=== PATIENT | female | born 1970 | race Caucasian/White ===

== ENCOUNTER 2018-10-25 09:17 | Outpatient (CLI) | payer BC | END 2018-10-25 09:18 | disposition home or self-care (01) | LOC: DTY/OP 09:17 | PROVIDERS: ATTEND Surgery | DX: E66.01 Morbid (severe) obesity due to excess calories (principal) | CPT/HCPCS: 97802 ==

== ENCOUNTER 2018-11-28 01:31 | Outpatient (CLI) | payer BC ==
[2018-11-28 11:39] LABS: #Eosinphils 0.2 thou/uL (0.0-0.7); #Lymphocytes 2.6 thou/uL (1.20-3.40); #Monocytes 0.6 thou/uL (0.11-0.59); #Neutrophils 5.1 thou/uL (1.40-6.50); %Basophils 0.5 % (0.0-1.0); %Eosinophils 2.8 % (0.0-10.0); %Lymphocytes 30.1 % (21.0-51.0); %Monocytes 7.3 % (0.0-10.0); %Neutrophils 59.4 % (42.0-75.0); Hemoglobin 13.8 g/dL (12.0-16.0); Mean Corpuscular Hemoglobin 30.1 pg (27.0-31.0); Mean Corpuscular Volume 91.3 fL (78.0-98.0); Mean Platelet Volume 7.4 fL (7.4-10.4); Platelet Count 302 thou/uL (130-400); RBC Distribution Width 11.6 % (11.5-14.5); Red Blood Cell (RBC) Count 4.57 mill/uL (4.20-5.40); White Blood Cell (WBC) Count 8.6 thou/uL (4.8-10.8)
[2018-11-28 11:44] LABS: BHCG - Serum Negative (NEGATIVE); Pregs Control Background? CLEAR/WHITE (CLR/WHITE); Pregs Control Bar Appear? YES (CONTROL BAR)
[2018-11-28 12:00] LABS: ALT (SGPT) 23 U/L (8-55); AST (SGOT) 19 U/L (5-34); Albumin 4.4 g/dL (3.5-5.0); Alkaline Phosphatase 106 U/L (40-150); Anion Gap 12 mmol/L (10-20); BUN (Urea Nitrogen) 17 mg/dL (7.0-18.7); Bilirubin, Direct 0.2 mg/dL (0.1-0.3); Bilirubin, Total 0.6 mg/dL (0.2-1.2); Calc. Creatinine Clearance 0 mL/min (70-130); Calcium 9.6 mg/dL (7.8-10.44); Carbon Dioxide 26 mmol/L (22-29); Chloride 102 mmol/L (98-107); Estimated GFR-MDRD 73; Glucose 74 mg/dL (70-105); Protein, Total 7.4 g/dL (6.0-8.3); Sodium 136 mmol/L (136-145)
[2018-11-28 12:32] LABS: Hemoglobin A1c 5.5 % (4.0-6.0)
--- NOTE | 2018-11-28 13:11 | RAD ---
CHEST TWO VIEWS: HISTORY: Preoperative radiograph prior to surgery. COMPARISON: None. FINDINGS: Two views of the chest show normal sized cardiomediastinal silhouette. There is no evidence of consol idation, mass, or pleural effusion. The bones are unremarkable. IMPRESSION: No evidence of acute cardiopulmonary disease. POS: [facility]
== END 2018-11-28 01:32 | disposition home or self-care (01) ==
LOC: LABBT 01:31
PROVIDERS: ATTEND Surgery
DX: Z01.818 Encounter for other preprocedural examination (principal); E66.01 Morbid (severe) obesity due to excess calories
CPT/HCPCS: 71046; 80053; 80076; 83036; 84703; 85025; 93005; 93010

== ENCOUNTER 2018-11-28 09:30 | Inpatient (IN) | payer BC ==
[2018-11-28 10:19] VITALS: BMI 37.5
[2018-12-05] MEDS ORDERED: Heparin 5,000 UNITS/ML VIAL ONE (10:28)
[2018-12-05] MEDS ORDERED: Scopolamine 1.5 mg/72 hour Patch ONE (10:29)
[2018-12-05] MEDS ORDERED: Bupivacaine/Epinephrine 0.25% 30 ML VIAL ONE (10:59)
[2018-12-05] MEDS ORDERED: Midazolam HCl 2 mg/2 ml Vial ONE (11:27)
[2018-12-05] MEDS ORDERED: Fentanyl 100 MCG/2 ML VIAL ONE ×2 (11:57→13:44)
[2018-12-05] MEDS ORDERED: Ondansetron HCl/PF 4 MG/2 ML Vial IVP PRN (13:44)
[2018-12-05] MEDS ORDERED: Promethazine HCl 25 MG/ML VIAL SLOW IVP PRN (13:44)
[2018-12-05] MEDS ORDERED: Promethazine HCl 25 MG/ML VIAL IM PRN ×3 (13:44→15:23)
[2018-12-05] MEDS ORDERED: Ondansetron PF 4 MG/2 ML Vial IVP PRN ×2 (13:46→15:23)
[2018-12-05] MEDS ORDERED: Zolpidem Tartrate 5 MG TAB PO PRN (13:46)
[2018-12-05] MEDS ORDERED: Naloxone HCl 0.4 mg/ml Vial IV PRN (13:46)
[2018-12-05] MEDS ORDERED: diphenhydrAMINE 50 MG/ML VIAL IM/IV PRN (13:46)
[2018-12-05] MEDS ORDERED: fentaNYL Citrate/PF 2,000 MCG in Sodium Chloride 0.9% 60 ML IV PRN (13:46)
[2018-12-05] MEDS ORDERED: diphenhydrAMINE 25 MG CAP PO PRN (13:46)
--- NOTE | 2018-12-05 14:20 | OP ---
DATE OF PROCEDURE: 12/05/2018 PREOPERATIVE DIAGNOSES: 1. Morbid obesity with a body mass index of 38. 2. Dyslipidemia. POSTOPERATIVE DIAGNOSES: 1. Morbid obesity with a body mass index of 38. 2. Dyslipidemia. 3. Hiatal hernia. PROCEDURES PERFORMED: 1. Laparoscopic sleeve gastrectomy with [place] staple line reinforcements and 38-Romansh bougie. 2. Esophagogastroduodenoscopy. 3. Laparoscopic paraesophageal hiatal hernia repair without mesh or fundoplication. ANESTHESIA: General. ESTIMATED BLOOD LOSS: Minimal. COMPLICATIONS: None. SPECIMENS: Stomach. FINDINGS: Normal postoperative EGD. DESCRIPTION OF PROCEDURE: The patient was taken to the operating room and laid supine on the operating room table. After general anesthetic was obtained, the arms and legs were double strapped to bariatric table. OG tube was used to decompress the stomach. The abdomen was prepped and draped in a sterile fashion. A left subcostal 5-mm Optiview trocar was placed in usual fashion and high-flow pneumoperitoneum was obtained. Left and right abdominal 12-mm ports as well as a right subcostal 5-mm port were placed under direct visualization. Subcostal 5-mm port was placed on the right as well. A 5-mm incision was made at the xiphoid and Alisha was used to raise the liver off the GE junction. Short gastrics were taken down to a distance of 5 cm proximal to the pylorus. Short gastrics were taken down all the way to the left antonia, angle of His was completely dissected. The small paraesophageal hiatal hernia was found. A circumferential dissection of the esophagus was performed up into the mediastinum. The gastrohepatic ligament was opened to facilitate this as well. OG tube was removed and 38 bougie was brought into tip, left in the antrum of the stomach. Multiple loads of the [place] stapling device used to perform the sleeve. The first was fired up at a distance of 6 cm proximal to the pylorus, angled up towards the incisura. Multiple loads were then fired up along the bougie. The stomach was completely transected at the angle of His. Stomach was removed from the left abdominal incision. This fascial defect was closed using GraNee needle and Vicryl tie. EGD scope was passed through esophagus, stomach to the level of duodenum without obstruction. There was no stenosis at the incisura or at the esophageal hiatus or GE junction. No air leakage or bleeding. EGD scope was used to decompress the stomach, it was pulled and removed. Alisha retractor was removed under direct visualization without bleeding. All port sites were infiltrated using local anesthetic and removed under direct visualization without bleeding. Pneumoperitoneum was let down. The Vicryl was used to close the fascial defect from the left abdominal incisions. All incisions were irrigated and closed using 4-0 Monocryl and Dermabond. The patient was sent to the Recovery in stable condition. All instruments counts, needle counts, and lap counts were correct. Job ID: [id number]
[2018-12-05] MEDS ORDERED: Rocuronium Bromide 10 MG/ML (10ML VIAL) ONE (15:19)
[2018-12-05] MEDS ORDERED: Glycopyrrolate 0.2 MG/ML 5 ML SYRINGE ONE (15:19)
[2018-12-05] MEDS ORDERED: Ketorolac Tromethamine 30 MG/ML VIAL ONE (15:19)
[2018-12-05] MEDS ORDERED: Metoclopramide HCl 10 MG/2 ML VIAL ONE (15:19)
[2018-12-05] MEDS ORDERED: PROPOFOL 200 MG/20 ML VIAL ONE (15:19)
[2018-12-05] MEDS ORDERED: Ondansetron PF 4 MG/2 ML Vial ONE (15:19)
[2018-12-05] MEDS ORDERED: diphenhydrAMINE 50 MG/ML VIAL ONE (15:19)
[2018-12-05] MEDS ORDERED: Lidocaine 1% PF 5 ML VIAL ONE (15:19)
[2018-12-05] MEDS ORDERED: hydrALAZINE 20 MG/ML VIAL SLOW IVP PRN (15:23)
[2018-12-05] MEDS ORDERED: Hydrocodone-Acetamin 15 ML UDCUP PO PRN (15:23)
[2018-12-05] MEDS ORDERED: Dextrose 50% Abboject 50 ML SYRINGE SLOW IVP PRN (15:23)
[2018-12-05] MEDS ORDERED: Dextrose 5% in Water 1,000 ML IV PRN (15:23)
[2018-12-05] MEDS ORDERED: diphenhydrAMINE 50 MG/ML VIAL IVP PRN (15:23)
[2018-12-05] MEDS: D5 1/2 NS w/20 mEq KCL 1,000 ML IV SCH (17:17)
[2018-12-05] MEDS: Acetaminophen 1,000 MG in Premix Bag 1 BAG IVPB SCH (17:17)
[2018-12-05] MEDS ORDERED: Enoxaparin Sodium 40 MG/0.4 ML SYRINGE SC SCH (21:00)
[2018-12-06] MEDS: Acetaminophen 1,000 MG in Premix Bag 1 BAG IVPB SCH ×3 (00:33→12:00)
[2018-12-06] MEDS: D5 1/2 NS w/20 mEq KCL 1,000 ML IV SCH ×2 (00:34→10:10)
[2018-12-06] MEDS ORDERED: Levothyroxine Sodium 125 MCG TAB PO SCH (06:00)
[2018-12-06 06:47] LABS: #Lymphocytes 1.7 thou/uL (1.20-3.40); #Monocytes 1.2 thou/uL (0.11-0.59); %Basophils 0.3 % (0.0-1.0); %Eosinophils 0.2 % (0.0-10.0); %Lymphocytes 12.9 % (21.0-51.0); %Monocytes 9.6 % (0.0-10.0); Hemoglobin 11.4 g/dL (12.0-16.0); Mean Corpuscular HGB CONC 32.7 g/dL (32.0-36.0); Mean Corpuscular Hemoglobin 30.4 pg (27.0-31.0); Mean Platelet Volume 7.3 fL (7.4-10.4); Platelet Count 276 thou/uL (130-400); RBC Distribution Width 11.6 % (11.5-14.5); Red Blood Cell (RBC) Count 3.74 mill/uL (4.20-5.40); White Blood Cell (WBC) Count 12.9 thou/uL (4.8-10.8)
[2018-12-06 07:08] LABS: Anion Gap 10 mmol/L (10-20); BUN (Urea Nitrogen) 9 mg/dL (7.0-18.7); Calc. Creatinine Clearance 135 mL/min (70-130); Calcium 8.3 mg/dL (7.8-10.44); Carbon Dioxide 22 mmol/L (22-29); Chloride 106 mmol/L (98-107); Estimated GFR-MDRD 78; Glucose 155 mg/dL (70-105); Potassium 4.3 mmol/L (3.5-5.1); Sodium 134 mmol/L (136-145)
[2018-12-06 08:30] VITALS: TEMP 98.4
[2018-12-06] MEDS ORDERED: Pantoprazole 40 MG VIAL IVP SCH (09:00)
--- NOTE | 2018-12-06 11:11 | DIS ---
DATE OF ADMISSION: 12/05/2018 DATE OF DISCHARGE: 12/06/2018 ADMITTING DIAGNOSES: 1. Morbid obesity. 2. Dyslipidemia. DISCHARGE DIAGNOSES: 1. Morbid obesity. 2. Dyslipidemia. PROCEDURES: Laparoscopic sleeve repair and hiatal hernia repair by Dr. Chamberlain without complication. CONDITION ON DISCHARGE: Improved. STAFF: Marquise Chamberlain MD HOSPITAL COURSE: On postop day #1, the patient is tolerating liquids. She is ambulatory. She is discharged home. Her Lortab, elixir, Zofran, and pantoprazole have already been called into her pharmacy. She will follow up with me in 2 weeks. Job ID: [id number]
[2018-12-06 13:35] VITALS: BP 129/84
== END 2018-12-06 14:05 | disposition home or self-care (01) | DRG 621 ==
LOC: SURG A 12-05 09:29 → EDSTATUS 12-05 09:30 → SURG B 12-05 14:39
PROVIDERS: ADMIT Surgery; ATTEND Surgery
PROC: 0DB64Z3 Excision of Stomach, Percutaneous Endoscopic Approach, Vertical (ICD-10-PCS; principal; 2018-12-05)
PROC: 0BQT4ZZ Repair Diaphragm, Percutaneous Endoscopic Approach (ICD-10-PCS; 2018-12-05)
PROC: 0DJ08ZZ Inspection of Upper Intestinal Tract, Via Natural or Artificial Opening Endoscopic (ICD-10-PCS; 2018-12-05)
DX: E66.01 Morbid (severe) obesity due to excess calories (principal); E78.5 Hyperlipidemia, unspecified; K44.9 Diaphragmatic hernia without obstruction or gangrene; Z68.38 Body mass index [BMI] 38.0-38.9, adult
CPT/HCPCS: 36415; 80048; 85025; 88307; 88312; C9113; J0131; J1200; J1644; J1650; J1885; J2001; J2250; J2405; J2550; J2704; J2765; J3010; J7050

== ENCOUNTER 2019-11-23 12:22 | Outpatient (CLI) | payer BC ==
--- NOTE | 2019-11-28 10:26 | MMO ---
Bilateral MAMMO Bilat Screen [facility]. CLINICAL HISTORY: Patient is 49 years old and is seen for screening. The patient has the following family history of breast cancer: paternal grandmother, malignant (generic). The patient has no personal history of cancer. VIEWS: The views performed were: bilateral craniocaudal with tomosynthesis and bilateral mediolateral oblique with tomosynthesis. This study has been interpreted with the assistance of computer-aided detection. MAMMOGRAM FINDINGS: There are scattered fibroglandular densities. There are stable benign appearing calcifications seen in both breasts. There are no suspicious masses, suspicious calcifications, or new areas of architectural distortion. IMPRESSION: THERE IS NO MAMMOGRAPHIC EVIDENCE OF MALIGNANCY. A ROUTINE FOLLOW-UP MAMMOGRAM IN 1 YEAR IS RECOMMENDED. THE RESULTS OF THIS EXAM WERE SENT TO THE PATIENT. ACR BI-RADS Category 2 - Benign finding MAMMOGRAPHY NOTE: 1. A negative mammogram report should not delay a biopsy if a dominant of clinically suspicious mass is present. 2. Approximately 10% to 15% of breast cancers are not detected by mammography. 3. Adenosis and dense breasts may obscure an underlying neoplasm. Reported by: CADENCE MARQUEZ MD Electonically Signed: [id number]
== END 2019-11-23 12:23 | disposition home or self-care (01) ==
LOC: BICMAMMO 12:22
PROVIDERS: ATTEND Family Medicine
DX: Z12.31 Encounter for screening mammogram for malignant neoplasm of breast (principal); Z80.3 Family history of malignant neoplasm of breast
CPT/HCPCS: 77063; 77067

== ENCOUNTER 2020-12-24 15:56 | Outpatient (CLI) | payer BC | END 2020-12-24 15:57 | disposition home or self-care (01) | LOC: BICRAD 15:56 | PROVIDERS: ATTEND Family Medicine | DX: M54.2 Cervicalgia (principal); M54.5 Low back pain; M47.812 Spondylosis without myelopathy or radiculopathy, cervical region; M47.816 Spondylosis without myelopathy or radiculopathy, lumbar region; M43.16 Spondylolisthesis, lumbar region | CPT/HCPCS: 72040; 72100 ==

== ENCOUNTER 2021-01-27 08:41 | Outpatient (CLI) | payer BC | END 2021-01-27 08:42 | disposition home or self-care (01) | LOC: BICMRI 08:41 | PROVIDERS: ATTEND Family Medicine | DX: M43.16 Spondylolisthesis, lumbar region (principal); M99.79 Connective tissue and disc stenosis of intervertebral foramina of abdomen and other regions; M47.816 Spondylosis without myelopathy or radiculopathy, lumbar region; M47.812 Spondylosis without myelopathy or radiculopathy, cervical region; M50.222 Other cervical disc displacement at C5-C6 level; M48.02 Spinal stenosis, cervical region | CPT/HCPCS: 72141; 72148 ==

== ENCOUNTER 2022-06-16 11:41 | Outpatient (CLI) | payer BC | END 2022-06-16 11:42 | disposition home or self-care (01) | LOC: BICMAMMO 11:41 | PROVIDERS: ATTEND Physician Assistant | DX: Z12.31 Encounter for screening mammogram for malignant neoplasm of breast (principal); Z80.3 Family history of malignant neoplasm of breast | CPT/HCPCS: 77063; 77067 ==

== ENCOUNTER 2023-01-26 16:37 | Outpatient (CLI) | payer BC ==
[2023-01-26 17:46] LABS: #Basophils 0.1 10x3/uL (0.0-0.2); #Monocytes 0.3 10x3/uL (0.0-1.1); #Neutrophils 9.4 10x3/uL (1.5-8.4); %Basophils 0.5 % (0.0-2.0); %Lymphocytes 8.6 % (18.0-47.0); %Monocytes 2.3 % (0.0-10.0); %Neutrophils 87.8 % (40.0-75.0); Hemoglobin 13.3 g/dL (12.0-15.5); Mean Corpuscular HGB CONC 33.1 g/dL (32.0-36.0); Mean Corpuscular Hemoglobin 29.8 pg (27.0-33.0); Mean Corpuscular Volume 90.1 fl (81.6-98.3); Mean Platelet Volume 10.2 fl (7.4-10.4); Platelet Count 285 10x3/uL (150-450); RBC Distribution Width 12.8 % (11.5-14.5); Red Blood Cell (RBC) Count 4.46 10x6/uL (3.90-5.03); White Blood Cell (WBC) Count 10.7 10x3/uL (3.5-10.5)
[2023-01-26 17:53] LABS: Anion Gap 13 mmol/L (10-20); BUN (Urea Nitrogen) 12 mg/dL (9.8-20.1); Calc. Creatinine Clearance 0 mL/min (70-130); Carbon Dioxide 25 mmol/L (22-29); Chloride 104 mmol/L (98-107); Estimated GFR 83; Glucose 99 mg/dL (70-105); Potassium 4.6 mmol/L (3.5-5.1); Sodium 137 mmol/L (136-145)
== END 2023-01-26 16:38 | disposition home or self-care (01) ==
LOC: LABBT 16:37
PROVIDERS: ATTEND Surgery
DX: Z01.812 Encounter for preprocedural laboratory examination (principal); K80.20 Calculus of gallbladder without cholecystitis without obstruction
CPT/HCPCS: 80048; 85025

== ENCOUNTER 2023-01-28 09:19 | Day surgery (SDC) | payer BC ==
[2023-01-26 16:48] VITALS: BMI 22.1
[2023-01-28] MEDS ORDERED: Scopolamine 1.5 mg/72 hour Patch ONE (12:50)
[2023-01-28] MEDS ORDERED: Bupivacaine/Epinephrine 0.25% 30 ML VIAL ONE (13:15)
[2023-01-28] MEDS ORDERED: Indocyanine Green 25 MG/10 ML VIAL ONE ×2 (13:15→13:40)
[2023-01-28] MEDS ORDERED: fentaNYL PF 100 MCG/2 ML SYRINGE ONE (13:18)
[2023-01-28] MEDS ORDERED: CEFAZOLIN 2 GM VIAL ONE (13:27)
[2023-01-28] MEDS ORDERED: Sodium Chloride 0.9% 100 ML ONE (13:27)
[2023-01-28] MEDS ORDERED: Midazolam HCl 2 mg/2 ml Vial ONE (13:30)
[2023-01-28] MEDS ORDERED: Dexamethasone 20 MG/5 ML VIAL ONE (13:40)
[2023-01-28] MEDS ORDERED: Glycopyrrolate 0.2 MG/ML 5 ML SYRINGE ONE (13:40)
[2023-01-28] MEDS ORDERED: Ondansetron PF 4 MG/2 ML Vial ONE ×2 (13:40→14:54)
[2023-01-28] MEDS ORDERED: PHENYLEPHRINE-NS 100 MCG/ML 10 ML SYRINGE ONE (13:40)
[2023-01-28] MEDS ORDERED: Rocuronium Bromide 10 MG/ML (10ML VIAL) ONE (13:40)
[2023-01-28] MEDS ORDERED: PROPOFOL 200 MG/20 ML VIAL ONE (13:40)
[2023-01-28] MEDS ORDERED: NEOSTIGMINE 3 MG/3 ML SYR 3 MG/3 ML SYRINGE ONE (13:40)
[2023-01-28] MEDS ORDERED: Lidocaine 1% PF 5 ML VIAL ONE (13:40)
[2023-01-28] MEDS ORDERED: fentaNYL 50 mcg/mL 1 mL Vial ONE ×2 (14:49→15:00)
[2023-01-28] MEDS ORDERED: Promethazine HCl 25 MG/ML VIAL ONE (15:03)
== END 2023-01-28 16:03 | disposition home or self-care (01) ==
LOC: SDC 09:19
PROVIDERS: ATTEND Surgery
DX: K80.10 Calculus of gallbladder with chronic cholecystitis without obstruction (principal); E07.9 Disorder of thyroid, unspecified; Z79.52 Long term (current) use of systemic steroids; Z79.85 Long-term (current) use of injectable non-insulin antidiabetic drugs; Z79.890 Hormone replacement therapy; Z79.899 Other long term (current) drug therapy; Z98.84 Bariatric surgery status
CPT/HCPCS: 88304; C1776; J1100; J2250; J2405; J2550; J2704; J3010; J3490

== ENCOUNTER 2023-12-08 14:21 | Outpatient (CLI) | payer BC | END 2023-12-08 14:22 | disposition home or self-care (01) | LOC: BICMAMMO 14:21 | PROVIDERS: ATTEND Physician Assistant | DX: Z12.31 Encounter for screening mammogram for malignant neoplasm of breast (principal); Z80.3 Family history of malignant neoplasm of breast; Z85.89 Personal history of malignant neoplasm of other organs and systems | CPT/HCPCS: 77063; 77067 ==